=== PATIENT | female | born 2000 | race Caucasian/White ===

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

== ENCOUNTER 2022-05-20 11:34 | Emergency (ER) | payer MEDICAID, OTHER ==
[2022-05-20] MEDS ORDERED: Sodium Chloride 0.9% 1000 ML 1,000 ML IV STA (12:16)
[2022-05-20] MEDS ORDERED: Zofran 4 MG/2 ML VIAL IV ONE (12:16)
[2022-05-20] MEDS ORDERED: MORPHINE SULFATE 2 MG INJ IV ONE (12:16)
[2022-05-20] MEDS ORDERED: Zofran 4 MG/2 ML VIAL ONE (12:27)
[2022-05-20] MEDS ORDERED: Sodium Chloride 0.9% 1000 ML 1,000 ML ONE (12:27)
[2022-05-20] MEDS ORDERED: MORPHINE SULFATE 2 MG INJ ONE (12:27)
[2022-05-20 12:31] LABS: Absolute Neutrophil Ct (ANC) 4.42 x10^3/uL (1.4-6.9); Basophil (Absolute #) 0.04 x10^3/uL (0-0.4); Eosinophil % 0.8 % (0.00-5.0); Eosinophil (Absolute #) 0.05 x10^3/uL (0-0.5); Hematocrit 43.8 % (35-47); Hemoglobin 15.1 g/dL (12.0-16.0); Mean Cell Volume 87.4 fL (78-100); Mean Corpuscular Hemoglobin 30.1 pg (26-32); Mean Corpuscular Hgb Concent. 34.5 g/dL (32-36); Mean Platelet Volume 8.9 fL (7.5-11.0); Monocyte (Absolute #) 0.26 x10^3/uL (0.0-1.3); Monocytes % 4.1 % (0.0-12.0); Neutrophil % 69.2 % (36.0-66.0); Platelet Count 202 x10^3/uL (150-450); Red Blood Count 5.01 x10^6/uL (4.1-5.4); Red Cell Distribution Width 12.5 % (11.5-14.0); White Blood Count 6.4 x10^3/uL (4.0-10.5)
--- NOTE | 2022-05-20 12:34 | ERPHSYRPT ---
- History of Present Illness Time Seen by Provider: 05/20/22 11:40 Historian: patient Exam Limitations: no limitations Patient Subjective Stated Complaint: C/O right lower abdominal pain that started suddenly 3 days ago. Triage Nursing Assessment: Patient ambulated back to ED without difficulties. No SOB. She is alert and oriented. No skin alterations noted to abdominal area. Tenderness to palpation of RLE; no rebound tenderness. Pain does not radiate or move anywhere. Physician History: 21 years old presented in the ER with chief complaint of right lower quadrant pain for last 3 days off and on, moderate to severe sharp, aggravation with movements, palpation and without associated nausea vomiting/diarrhea. Denies any urinary complaints. No fever or chills reported. LMP almost 3 weeks ago. Timing/Duration: day(s) (3) Allergies/Adverse Reactions: No Known Drug Allergies Allergy (Unverified 05/20/22 11:57) Home Medications: Sertraline HCl 50 mg [Zoloft 50 mg Tablet] 200 mg PO DAILY 03/21/18 [History] Hx Tetanus, Diphtheria Vaccination/Date Given: Yes Hx Influenza Vaccination/Date Given: No Hx Pneumococcal Vaccination/Date Given: No Immunizations Up to Date: Yes Travel Risk - International Travel Have you traveled outside of the country in past 3 weeks: No - Coronavirus Screening Are you exhibiting any of the following symptoms?: No Close contact with a COVID-19 positive Pt in past 14-21 Days: No - Vaccine Status Have you recieved a Covid-19 vaccination: No - Review of Systems Constitutional: No Symptoms Eyes: No Symptoms Ears, Nose, & Throat: No Symptoms Respiratory: No Symptoms Cardiac: No Symptoms Abdominal/Gastrointestinal: Abdominal Pain Genitourinary Symptoms: No Symptoms Musculoskeletal: No Symptoms Skin: No Symptoms Neurological: No Symptoms Endocrine: No Symptoms Hematologic/Lymphatic: No Symptoms - Past Medical History Pertinent Past Medical History: Yes Neurological History: No Pertinent History ENT History: No Pertinent History Cardiac History: No Pertinent History Respiratory History: No Pertinent History Endocrine Medical History: No Pertinent History Musculoskeletal History: No Pertinent History GI Medical History: Gallbladder Disease History: No Pertinent History Psycho-Social History: Anxiety, Depression Female Reproductive Disorders: No Pertinent History - Past Surgical History Past Surgical History: Yes Neuro Surgical History: No Pertinent History Cardiac: No Pertinent History Respiratory: No Pertinent History Gastrointestinal: Cholecystectomy Genitourinary: No Pertinent History Musculoskeletal: No Pertinent History Other Surgical History: Union teeth - Social History Smoking Status: Smoker, status unknown How long have you smoked: 1 month Exposure to second hand smoke: No Drug Use: marijuana Patient Lives Alone: No - Female History Hx Last Menstrual Period: April 30, 2022 Hx Now: (UNKN) - Nursing Vital Signs Nursing Vital Signs: Initial Vital Signs Temperature 97.9 F 05/20/22 11:34 Pulse Rate 76 05/20/22 11:34 Respiratory Rate 18 05/20/22 11:34 Blood Pressure 112/86 05/20/22 11:34 O2 Sat by Pulse Oximetry 94 L 05/20/22 11:34 Pain Scale Pain Intensity 3 - Physical Exam General Appearance: no apparent distress, alert Eye Exam: PERRL/EOMI Ears, Nose, Throat Exam: normal ENT inspection Neck Exam: normal inspection, supple, full range of motion Respiratory Exam: normal breath sounds, lungs clear Cardiovascular Exam: regular rate/rhythm, normal heart sounds Gastrointestinal/Abdomen Exam: soft, normal bowel sounds, tenderness (Right lower quadrant/right upper quadrant with guarding. Rebound tenderness in right lower quadrant) Back Exam: normal inspection, normal range of motion Extremity Exam: normal inspection, normal range of motion Neurologic Exam: alert, oriented x 3, cooperative Skin Exam: normal color SpO2 Interpretation: normal SpO2: 94 O2 Delivery: Room Air Ordered Tests: Active Orders 24 hr Category Date Time Status IV Insertion STAT Care 05/20/22 12:26 Active ABDOMEN AND PELVIS W/0 CONTRAS [CT] Stat Exams 05/20/22 13:33 Completed PELVIC [US] Stat Exams 05/20/22 15:10 Completed CBC W DIFF Stat Lab 05/20/22 12:25 Completed CMP Stat Lab 05/20/22 12:25 Completed HCG,QUALITATIVE URINE Stat Lab 05/20/22 11:53 Completed LIPASE Stat Lab 05/20/22 12:25 Completed UA W/RFX CULTURE Stat Lab 05/20/22 11:54 Completed Medication Summary Discontinued Medications Generic Name Dose Route Start Last Admin Trade Name Freq PRN Reason Stop Dose Admin Sodium Chloride 1,000 mls @ 999 mls/hr 05/20/22 12:16 05/20/22 14:07 Sodium Chloride 0.9% 1000 Ml IV 05/20/22 13:16 Infused .Q1H1M STA Infusion Sodium Chloride Confirm 05/20/22 12:27 Sodium Chloride 0.9% 1000 Ml Administered 05/20/22 12:28 Dose 1,000 mls @ ud .ROUTE .STK-MED ONE Ketorolac Tromethamine 30 mg 05/20/22 14:13 05/20/22 14:22 Ketorolac Tromethamine 30 Mg/Ml Inj IV 05/20/22 14:14 30 mg STAT ONE Administration Ketorolac Tromethamine Confirm 05/20/22 14:21 Ketorolac Tromethamine 30 Mg/Ml Inj Administered 05/20/22 14:22 Dose 30 mg .ROUTE .STK-MED ONE Morphine Sulfate 2 mg 05/20/22 12:16 05/20/22 12:30 Morphine Sulfate 2 Mg/Ml Inj IV 05/20/22 12:17 2 mg STAT ONE Administration Morphine Sulfate Confirm 05/20/22 12:27 Morphine Sulfate 2 Mg/Ml Inj Administered 05/20/22 12:28 Dose 2 mg .ROUTE .STK-MED ONE Ondansetron HCl 4 mg 05/20/22 12:16 05/20/22 12:30 Ondansetron Hcl 4 Mg/2 Ml Vial IV 05/20/22 12:17 4 mg STAT ONE Administration Ondansetron HCl Confirm 05/20/22 12:27 Ondansetron Hcl 4 Mg/2 Ml Vial Administered 05/20/22 12:28 Dose 4 mg .ROUTE .STK-MED ONE Lab/Rad Data: Laboratory Result Diagrams 05/20/22 12:25 05/20/22 12:25 Laboratory Results 05/20/22 05/20/22 05/20/22 Range/Units 12:25 12:25 11:54 WBC 6.4 (4.0-10.5) x10^3/uL RBC 5.01 (4.1-5.4) x10^6/uL Hgb 15.1 (12.0-16.0) g/dL Hct 43.8 (35-47) % MCV 87.4 (78-100) fL MCH 30.1 (26-32) pg MCHC 34.5 (32-36) g/dL RDW 12.5 (11.5-14.0) % Plt Count 202 (150-450) x10^3/uL MPV 8.9 (7.5-11.0) fL Gran % 69.2 H (36.0-66.0) % Immature Gran % (Auto) 0.3 (0.00-0.4) % Nucleat RBC Rel Count 0.0 (0.00-0.1) % Eos # (Auto) 0.05 (0-0.5) x10^3/uL Immature Gran # (Auto) 0.02 (0.00-0.03) x10^3u/L Absolute Lymphs (auto) 1.60 (1.0-4.6) x10^3/uL Absolute Monos (auto) 0.26 (0.0-1.3) x10^3/uL Absolute Nucleated RBC 0.00 (0.00-0.01) x10^3u/L Lymphocytes % 25.0 (24.0-44.0) % Monocytes % 4.1 (0.0-12.0) % Eosinophils % 0.8 (0.00-5.0) % Basophils % 0.6 (0.0-0.4) % Absolute Granulocytes 4.42 (1.4-6.9) x10^3/uL Basophils # 0.04 (0-0.4) x10^3/uL Sodium 138 (137-145) mmol/L Potassium 3.7 (3.5-5.1) mmol/L Chloride 106 (98-107) mmol/L Carbon Dioxide 27 (22-30) mmol/L Anion Gap 9.4 (5-15) MEQ/L BUN 8 (7-17) mg/dL Creatinine 0.75 (0.52-1.04) mg/dL Estimated GFR > 60.0 ML/MIN Glucose 93 (74-106) mg/dL Calcium 8.7 (8.4-10.2) mg/dL Total Bilirubin 0.70 (0.2-1.3) mg/dL AST 20 (14-36) U/L ALT 13 (0-35) U/L Alkaline Phosphatase 67 (38-126) U/L Serum Total Protein 7.1 (6.3-8.2) g/dL Albumin 4.1 (3.5-5.0) g/dL Lipase 75 (23-300) U/L Urinalys Dipstick Clnc MAIN LAB Urine Color YELLOW (YELLOW) Urine Appearance CLEAR (CLEAR) Urine pH 6.0 (5-6) Ur Specific [place] >=1.030 A (1.005-1.025) POC Urine Protein Conf TRACE A (Negative) Urine Ketones NEGATIVE (NEGATIVE) Urine Nitrite NEGATIVE (NEGATIVE) Urine Bilirubin NEGATIVE (NEGATIVE) Urine Urobilinogen 0.2 (0-1) mg/dL Urine Leukocytes NEGATIVE (NEGATIVE) Urine WBC (Auto) 0-2 (0-5) /HPF Urine RBC (Auto) NONE (0-2) /HPF U Epithel Cells (Auto) RARE (FEW) /HPF Urine Bacteria (Auto) NONE (NEGATIVE) /HPF Urine RBC NEGATIVE (0-5) Devan/ul Urine Mucus (Auto) SLIGHT A (NEGATIVE) /HPF Ur Culture Indicated? NO Urine Glucose NEGATIVE (NEGATIVE) mg/dL Urine HCG, Qual (Negative) 05/20/22 Range/Units 11:53 WBC (4.0-10.5) x10^3/uL RBC (4.1-5.4) x10^6/uL Hgb (12.0-16.0) g/dL Hct (35-47) % MCV (78-100) fL MCH (26-32) pg MCHC (32-36) g/dL RDW (11.5-14.0) % Plt Count (150-450) x10^3/uL MPV (7.5-11.0) fL Gran % (36.0-66.0) % Immature Gran % (Auto) (0.00-0.4) % Nucleat RBC Rel Count (0.00-0.1) % Eos # (Auto) (0-0.5) x10^3/uL Immature Gran # (Auto) (0.00-0.03) x10^3u/L Absolute Lymphs (auto) (1.0-4.6) x10^3/uL Absolute Monos (auto) (0.0-1.3) x10^3/uL Absolute Nucleated RBC (0.00-0.01) x10^3u/L Lymphocytes % (24.0-44.0) % Monocytes % (0.0-12.0) % Eosinophils % (0.00-5.0) % Basophils % (0.0-0.4) % Absolute Granulocytes (1.4-6.9) x10^3/uL Basophils # (0-0.4) x10^3/uL Sodium (137-145) mmol/L Potassium (3.5-5.1) mmol/L Chloride (98-107) mmol/L Carbon Dioxide (22-30) mmol/L Anion Gap (5-15) MEQ/L BUN (7-17) mg/dL Creatinine (0.52-1.04) mg/dL Estimated GFR ML/MIN Glucose (74-106) mg/dL Calcium (8.4-10.2) mg/dL Total Bilirubin (0.2-1.3) mg/dL AST (14-36) U/L ALT (0-35) U/L Alkaline Phosphatase (38-126) U/L Serum Total Protein (6.3-8.2) g/dL Albumin (3.5-5.0) g/dL Lipase (23-300) U/L Urinalys Dipstick Clnc Urine Color (YELLOW) Urine Appearance (CLEAR) Urine pH (5-6) Ur Specific [place] (1.005-1.025) POC Urine Protein Conf (Negative) Urine Ketones (NEGATIVE) Urine Nitrite (NEGATIVE) Urine Bilirubin (NEGATIVE) Urine Urobilinogen (0-1) mg/dL Urine Leukocytes (NEGATIVE) Urine WBC (Auto) (0-5) /HPF Urine RBC (Auto) (0-2) /HPF U Epithel Cells (Auto) (FEW) /HPF Urine Bacteria (Auto) (NEGATIVE) /HPF Urine RBC (0-5) Devan/ul Urine Mucus (Auto) (NEGATIVE) /HPF Ur Culture Indicated? Urine Glucose (NEGATIVE) mg/dL Urine HCG, Qual NEGATIVE (Negative) - Progress Progress: improved, pain not gone completely, re-examined Progress Note: 05/20/22 15:53 21 years old is evaluated for right lower quadrant pain without vomiting or urinary symptoms. Patient was pretty tender on presentation, given small dose of morphine and Toradol, on reevaluation feeling better. She is also given flu ids. She has a normal white count, unremarkable chemistries and no UTI. I have obtained CT abdomen pelvis which is negative for acute appendicitis, obstruction, perforation, mesenteric adenitis, stone or pyelonephritis. She does have history of cholecystectomy in the past. I have obtain ultrasound as well which is negative for cyst rupture/torsion or any other masslike lesion. Do not know the exact cause of her pain, could be early onset appendicitis. Recommended taking Tylenol ibuprofen and outpatient follow-up with primary care. Discussed signs symptoms of worsening needing return to ER which she seems understanding. Stable for discharge. Counseled pt/family regarding: lab results, diagnosis, need for follow-up, rad results - Departure Departure Disposition: Home Clinical Impression: Right lower quadrant pain Condition: Stable Critical Care Time: No Referrals: ZION ROBERTS MD [Primary Care Provider] - Follow up/PCP as directed (1-2 days for reevaluation) Instructions: Severe Abdominal Pain, Adult (DC) Additional Instructions: Take Tylenol/ibuprofen as needed. Return to ER for increasing pain, vomiting, fever chills, difficulty urination etc. Follow-up with primary care for reevaluation otherwise in 1 to 2 days. Prescriptions: Ibuprofen 600 mg PO Q6HPRN PRN 10 Days #20 tablet PRN Reason: Pain
[2022-05-20 12:39] LABS: Epithelial Cells RARE /HPF (FEW); Mucus SLIGHT /HPF (NEGATIVE); WBC 0-2 /HPF (0-5)
[2022-05-20 12:44] LABS: Appearance CLEAR (CLEAR); Bilirubin NEGATIVE (NEGATIVE); Glucose NEGATIVE (NEGATIVE); Ketones NEGATIVE (NEGATIVE); Protein,Urine Dip TRACE (Negative); RBC NEGATIVE Ery/ul (0-5); Specific Gravity >=1.030 (1.005-1.025)
[2022-05-20 12:45] LABS: Dipstick done @ ? MAIN LAB; Nitrite NEGATIVE (NEGATIVE); Urobilinogen 0.2 mg/dL (0-1)
[2022-05-20 12:47] LABS: Urine Cultured Indicated? NO
[2022-05-20 13:06] LABS: ALBUMIN 4.1 g/dL (3.5-5.0); ALKALINE PHOSPHATASE 67 U/L (38-126); ANION GAP 9.4 MEQ/L (5-15); BLOOD UREA NITROGEN 8 mg/dL (7-17); CHLORIDE 106 mmol/L (98-107); Calcium 8.7 mg/dL (8.4-10.2); Carbon Dioxide 27 mmol/L (22-30); Creatinine 1 0.75 mg/dL (0.52-1.04); EST GLOMERULAR FILTRATION RATE > 60.0 ML/MIN; Glucose 93 mg/dL (74-106); LIPASE 75 U/L (23-300); Potassium 3.7 mmol/L (3.5-5.1); SGOT/AST 20 U/L (14-36); SGPT/ALT 13 U/L (0-35); SODIUM 138 mmol/L (137-145); Total Protein 7.1 g/dL (6.3-8.2)
[2022-05-20 13:10] VITALS: PULSE 64
--- NOTE | 2022-05-20 13:40 | XRAY ---
Indication: Right lower quadrant pain and nausea 3 days. Multiple contiguous axial images obtained through the abdomen and pelvis without contrast. Comparison: CT abdomen March 05, 2019 Lung bases remain clear. Heart not enlarged. Noncontrasted stomach and bowel loops appear nonobstructed. Appendix not seen. No free fluid/air. Interval cholecystectomy. Remaining liver, pancreas, spleen, adrenal glands, kidneys, ureters, bladder, and aorta are unremarkable for noncontrast exam. Osseous structures intact. Impression: Interval cholecystectomy. Remaining CT abdomen/pelvis without contrast exam is negative.
[2022-05-20] MEDS ORDERED: TORAdol 30 mg Injection IV ONE (14:13)
[2022-05-20] MEDS ORDERED: TORAdol 30 mg Injection ONE (14:21)
--- NOTE | 2022-05-20 15:21 | XRAY ---
Indication: Right lower quadrant pain. Two-dimensional transabdominal pelvic sonogram performed. Comparison: None Uterus anteverted measuring 7.0 x 2.8 x 4.7 cm. No focal solid/cystic uterine mass. Endometrial stripe measures 4.1 mm. No endometrial cavity mass or fluid collection. Right ovary measures 2.6 x 2.2 x 3.1 cm and the left measures 2.9 x 2.1 x 2.9 cm. Normal follicular cysts and perfusion bilaterally. Tiny fluid adjacent to the left ovary presumed from rupture/leaking cyst. No suspicious adnexal mass. Impression: Tiny physiologic left adnexal fluid. Remaining transabdominal pelvic sonogram is negative.
[2022-05-20 15:51] VITALS: BP 100/57
[2022-05-20 15:56] VITALS: O2SAT 94
== END 2022-05-20 16:02 | disposition home or self-care (01) ==
LOC: ED 11:34
DX: R10.31 Right lower quadrant pain (principal); Z79.899 Other long term (current) drug therapy; Z28.310 Unvaccinated for COVID-19
CPT/HCPCS: 36000; 36415; 74176; 76856; 80053; 81015; 81025; 83690; 85025; 96360; 96374; 96375; 99284; J1885; J2270; J2405